=== PATIENT | female | born 1955 | race Caucasian/White ===

== ENCOUNTER 2025-03-01 10:15 | Inpatient (IN) | payer MEDICARE, SELFPAY ==
[2025-03-01] VITALS (18 sets, daily range): BP systolic 71–138; BP diastolic 37–86; PULSE 68–97; RESP 12–18; TEMP 35.8–37; O2SAT 87–100; BMI 29.0
--- NOTE | 2025-03-01 10:30 | DI.RAD_ITS ---
Exam(s) XR PELVIS AP EXAM: XR PELVIS AP CLINICAL HISTORY: pain s/p fall. TECHNIQUE: 2D digital imaging was performed. COMPARISON: No exams were available for comparison FINDINGS: Single AP view of the pelvis-hips There is a comminuted intertrochanteric fracture of the right hip. The lesser trochanter is avulsed. There are only minimal degenerative changes in the hip joint. Remainder of the pelvis appears unremarkable IMPRESSION: Intertrochanteric fracture of the right hip with additional avulsion of the lesser trochanter. DATA REPOSITORY: RADIATION DOSE DELIVERED:
--- NOTE | 2025-03-01 10:30 | DI.RAD_ITS ---
Exam(s) XR KNEE RT 3V AP,LAT,FAB EXAM: XR KNEE RT 3V AP,LAT,FAB CLINICAL HISTORY: pain s/p fall. TECHNIQUE: 2D digital imaging was performed. COMPARISON: No exams were available for comparison FINDINGS: Five views of the right knee No evidence of acute fracture. Possible small amount of increased joint fluid. There are significant osteoarthritic degenerative changes in all 3 compartments, most prominent in the medial compartment. IMPRESSION: Degenerative changes in the knee but no fractures. DATA REPOSITORY: RADIATION DOSE DELIVERED:
--- NOTE | 2025-03-01 10:30 | DI.RAD_ITS ---
Exam(s) XR FEMUR RT EXAM: XR FEMUR RT CLINICAL HISTORY: pain s/p fall. TECHNIQUE: 2D digital imaging was performed. COMPARISON: No exams were available for comparison FINDINGS: Four views There is a comminuted intertrochanteric fracture of the right hip. There is avulsion of the lesser trochanter. No osseous lesions at the fracture level in the hip nor elsewhere in the femur. There are significant degenerative changes in the ipsilateral knee joint. No osseous lesions. IMPRESSION: Comminuted intertrochanteric fracture of the right hip. Degenerative changes in the knee. DATA REPOSITORY: RADIATION DOSE DELIVERED:
--- NOTE | 2025-03-01 10:36 | W.ED.GENAD ---
Discharge Plan Disposition Patient Disposition: Admit to [facility] Condition: Stable Discharge Details Clinical Impression: Closed fracture of right hip Primary Care Provider: Gerson Proctor ED Provider: Adam Fay Home Meds and New Rx's Prescriptions: No Action bupropion HCl 100 mg tablet 100 mg PO BID losartan [Cozaar] 100 mg tablet 100 mg PO DAILY amlodipine 5 mg tablet 5 mg PO DAILY celecoxib [Celebrex] 100 mg capsule 100 mg PO BID hydrochlorothiazide 25 mg tablet 25 mg PO DAILY atorvastatin [Lipitor] 10 mg tablet 10 mg PO QHS HPI General Mode of arrival: EMS. Date/Time Provider Initiated Documentation: 03/01/25 10:15. Limitations to Documentation: no limitations. Information obtained by: patient. History of Present Illness 69 year old F presents to the emergency department with the chief complaint of right hip pain s/p fall, described as severe, Quality is described as sharp, Patient started experiencing this hour(s) (2) and it has been constant. Rest improves symptom(s), Movement worsens symptoms . Patient notes no other symptoms.. Related Data Home Medications ?Medication ?Instructions ?Recorded ?Confirmed amlodipine 5 mg tablet 5 mg PO DAILY 03/01/25 03/01/25 atorvastatin 10 mg tablet (Lipitor) 10 mg PO QHS 03/01/25 03/01/25 bupropion HCl 100 mg tablet 100 mg PO BID 03/01/25 03/01/25 celecoxib 100 mg capsule (Celebrex) 100 mg PO BID 03/01/25 03/01/25 hydrochlorothiazide 25 mg tablet 25 mg PO DAILY 03/01/25 03/01/25 losartan 100 mg tablet (Cozaar) 100 mg PO DAILY 03/01/25 03/01/25 Allergies Allergy/AdvReac Type Severity Reaction Status Date / Time No Known Allergies Allergy Unverified 03/01/25 10:23 General Stated Complaint: Orthopedic ARYA: 3 Review of Systems All systems reviewed & are unremarkable except as noted in HPI and below Constitutional Constitutional: Denies chills, Denies fever(s) and Denies weakness ENT Ears, Nose, Mouth, and Throat: Denies neck pain Cardiovascular Cardiovascular: Denies chest pain and Denies dyspnea Respiratory Respiratory: Denies cough and Denies dyspnea Gastrointestinal Gastrointestinal: Denies abdominal pain, Denies nausea and Denies vomiting Musculoskeletal Musculoskeletal: Reports deformity and Denies neck pain Neurologic Neurologic: Denies weakness Exam Const General: no acute distress Orientation: alert [facility] Head: normal to inspection Ears: external ears normal General nose exam: external nose normal Mouth: moist mucous membranes Eyes General: appearance normal, both eyes and all related structures Neck Neck: normal visual inspection and nontender Resp Effort & Inspection: normal respiratory effort and able to speak in complete sentences Cardio Rate: regular rate GI Palpation: soft and nontender Skin General skin exam: no rashes or lesions noted Neuro General: patient alert and patient oriented x3 Extrem General: capillary refill normal Psych Mental Status: mental status grossly normal Course Vital Signs Vital signs: Vital Signs Temperature 36.5 C 03/01/25 10:15 Pulse 81 03/01/25 10:15 Respiratory Rate 18 03/01/25 10:15 Pulse Oximetry 98 03/01/25 10:15 Temperature 36.5 C 03/01/25 10:15 Temperature Source Oral 03/01/25 10:15 Pulse 81 03/01/25 10:15 Respiratory Rate 18 03/01/25 10:15 Pulse Oximetry 98 03/01/25 10:15 Oxygen Delivery Method Room Air 03/01/25 10:15 Oxygen Flow Rate 0 03/01/25 10:15 Pain Level 5 03/01/25 10:15 Medical Decision Making 69-year-old female with a history of hypertension hyperlipidemia comes in with EMS after she had her dog on the leash and then the dog started to run after another dog causing the patient to be pulled over and landing on her right hip. She did not hit her head or lose consciousness. She had severe right hip pain and EMS had to be called because she was unable to get up due to the pain. She denies any headache, neck pain, back pain, chest or abdomen pain. Denies any preceding symptoms to the fall. She is unable to move her right hip due to pain. She also has tenderness in the right anterior knee without visible or palpable deformity of the knee. She has no tenderness in the tib-fib, ankle or foot with intact sensation and pulses. I suspect hip fracture, will check basic labs and obtain x-rays. Labs unremarkable, x-ray confirms right hip fracture. I discussed the case with Dr. Ortega who is planning on bringing in her to the OR later today. Spoke with hospitalist WILBER Chung who will plan to admit the patient. Differential Diagnosis Differential Diagnosis: Fracture, contusion Lab Data Lab results reviewed: Yes I reviewed the patient's lab results. ECG Data Attestation: I personally reviewed and interpreted this ECG (s) as follows: Prior ECG tracings: not available for review Interpretation: Sinus rhythm, rate of 72, no STEMI PFSH All Active Problems (Updated 03/01/25 @ 11:56 by Adam Fay MD) Closed fracture of right hip (Acute) Dyslipidemia (Acute) Hypertension (Chronic) Closed intertrochanteric fracture of right hip (Acute 03/01/25) Social History Smoking/Tobacco Use Status: Former Tobacco Use Smoking risk assessment performed?: Yes Alcohol Intake: current Alcohol Intake frequency: 0-2 drinks per day Substance use type: marijuana Housing: house Do you feel safe at home: Yes Do you feel safe in your relationship?: Yes
[2025-03-01] MEDS: Ketorolac 15 MG/ML VIAL IVP (10:53)
[2025-03-01 10:57] LABS: Abs Immature Grans 0.04 10^3/uL (0.0-0.06); HCT 37.9 % (36.0-46.0); HGB 13.4 g/dL (11.2-15.7); Immature Grans % 0.5 %; MCH 30.5 pg (27.0-33.0); MCHC 35.4 % (32.0-36.0); MCV 86 fL (80-95); MPV 9.0 fL (8.0-11.0); Platelet Count 310 10^3/uL (130-400); RBC 4.39 10^6/uL (3.93-5.22); RDW 12.3 % (11.7-14.6); RDW-SD 39.1 fL; WBC 8.17 10^3/uL (4.4-10.8)
[2025-03-01 11:13] LABS: ALT 45 U/L (14-59); AST 27 U/L (15-37); Albumin 4.2 g/dL (3.4-5.0); Alkaline Phosphatase 47 U/L (46-116); Anion Gap 10.2 mmol/L (3-11); BUN 14 mg/dL (7-18); Bilirubin, Total 0.4 mg/dL (0.2-1.0); CO2 27.8 mmol/L (21.0-32.0); Calcium 9.1 mg/dL (8.5-10.1); Chloride 98 mmol/L (98-107); Estimated GFR 93.56 (mL/min/1.73m2); Glucose 114 mg/dL (74-106); INR 1.0 (0.9-1.1); Magnesium 2.1 mg/dL (1.8-2.4); PTT Activated 25.4 sec (20.6-30.2); Potassium 3.5 mmol/L (3.5-5.1); Prothrombin Time 10.1 sec (9.1-11.1); Sodium 136 mmol/L (136-145); Total Protein 7.6 g/dL (6.4-8.2)
--- NOTE | 2025-03-01 11:42 | OCONE_ITS ---
Assessment and Plan Assessment and plan (1) Closed intertrochanteric fracture of right hip: Status: Acute Assessment and plan: 69 year old female with displaced Right hip intertrochanteric fracture Medical admission, [employer] evalution, and optimization for surgery potentially this afternoon given overall good health for Right hip intramedullary nailing Patient greeted in the OR holding area. Community ambulator without any assist device. No notable pre-existing hip problems. Significant right knee arthritis problems having been told not to have surgery at [facility] until it was her redness and also was described a challenging recovery so has been holding off. Was visiting camp and mechanical fall due to dogs earlier today with isolated right hip problem. Denies any other injuries or issues. Hypertension and hyperlipidemia. Lives alone in [place] but has family and friends in that area. Comfortable in hospital bed. Moving bilateral upper extremities and left lower extremity without issue sensory intact. Sensory intact right lower extremity. Right hip tenderness not vigorously tested. Right knee without signs of injury. Pelvis hip femur x-rays reviewed showing displaced multipart intertrochanteric hip fracture. Significant knee arthritis, difficult to visualize due to poor positioning due to hip fracture. Decision to proceed with surgery today: Right hip intramedullary nailing The risks, benefits, and alternatives were thoroughly discussed. Patient was counseled regarding pain management, expected postoperative course, and recovery timeline. All questions were answered. Informed consent was obtained. Agree and understand treatment plan. Follow up 10-14 days after surgery. Will call if any changes or concerns. Breathing comfortably on room air. No coughs or wheezes. 2+ right radial pulse. Regular rate and rhythm. Consider referral Dr. Griffin evaluate right knee for total knee arthroplasty. Short narrow preferred for this fracture and to avoid any future issue above knee replacement. [facility] All Active Problems (Updated 03/01/25 @ 11:56 by Adam Fay MD) Closed fracture of right hip (Acute) Dyslipidemia (Acute) Hypertension (Chronic) Closed intertrochanteric fracture of right hip (Acute 03/01/25) Social History Smoking/Tobacco Use Status: Former Tobacco Use Smoking risk assessment performed?: Yes Alcohol Intake: current Alcohol Intake frequency: 0-2 drinks per day Substance use type: marijuana Housing: house Do you feel safe at home: Yes Do you feel safe in your relationship?: Yes Results Last Vital Signs Temp 97.7 F 03/01/25 10:15 Pulse 81 03/01/25 10:15 Resp 18 03/01/25 10:15 Pulse Ox 98 03/01/25 10:15 Labs 03/01/25 10:15 03/01/25 10:15 Labs: Laboratory Results - last 24 hr 03/01/25 10:15 WBC 8.17 RBC 4.39 Hgb 13.4 Hct 37.9 MCV 86 MCH 30.5 MCHC 35.4 RDW 12.3 Plt Count 310 MPV 9.0 Immature Gran % 0.5 Neutrophils % 73.3 Lymphocytes % 14.4 Monocytes % 7.2 Eosinophils % 4.0 Basophils % 0.6 Nucleated RBC % 0.0 Absolute Neutrophils 5.98 Absolute Lymphocytes 1.18 L Absolute Monocytes 0.59 Absolute Eosinophils 0.33 Absolute Basophils 0.05 PT 10.1 INR 1.0 APTT 25.4 Sodium 136 Potassium 3.5 Chloride 98 Carbon Dioxide 27.8 Anion Gap 10.2 BUN 14 Creatinine 0.7 Est GFR (CKD-EPI 2020) 93.56 Glucose 114 H Calcium 9.1 Magnesium 2.1 Total Bilirubin 0.4 AST 27 ALT 45 Alkaline Phosphatase 47 Total Protein 7.6 Albumin 4.2
--- NOTE | 2025-03-01 11:45 | RT.EKG_ITS ---
APPROVED REPORT Exam: Resting ECG Reason for Exam: preop Patient Location: E HR:72 bpm ECG Measurements Heart Rate 72 AXIS FL 202 P 54 QRSd 96 QRS 25 QT 403 T 32 QTc 441 Conclusion Sinus rhythm...normal P axis, V-rate 60- 99
--- NOTE | 2025-03-01 11:49 | DI.VRAD_ITS ---
PROCEDURE INFORMATION: Exam: XR Pelvis Exam date and time: 03/01/2025 11:01 AM Age: 69 years old Clinical indication: Other: Fall TECHNIQUE: Imaging protocol: Radiologic exam of the pelvis. Views: 1 or 2 view. COMPARISON: No relevant prior studies available. FINDINGS: Bones/joints: Bony mineralization appears within normal limits. There is a comminuted intertrochanteric fracture of the right hip with foreshortening and valgus deformity. Degenerative changes are seen in both hips. Degenerative changes are seen in the lumbar spine. SI joints are symmetric. There is no other acute fracture on AP view of the pelvis Soft tissues: Soft tissue calcification/phleboliths are noted. Gastrointestinal tract: Prominent stool in the rectum. Bowel gas pattern is unremarkable IMPRESSION: Comminuted intertrochanteric fracture of the right hip. Dictated and Authenticated by: Brigitte Smith MD. Orderin Nya Medina MD
--- NOTE | 2025-03-01 11:50 | W.PM.HP.N ---
Date of service: 03/01/25 Time of Service: 11:50 Assessment and Plan Assessment and plan (1) Closed intertrochanteric fracture of right hip: Status: Acute Assessment and plan: Admit to the medical surgical unit for a right hip fracture, sustained during mechanical fall. No other injuries. Surgical consultation Plan for or repair today at 3 PM N.p.o. Pain management Patient is optimized for surgery (2) Hypertension: Status: Chronic Assessment and plan: Blood pressures are controlled and will be monitored Will continue home medications (3) Dyslipidemia: Status: Acute Assessment and plan: Continue statin discussed with DR Gilbert History of Present Illness Narrative: This is a 69-year-old female patient past medical history significant for hypertension, dyslipidemia who presented to the emergency department today after sustaining a mechanical fall with injury to her right hip and lower extremity. Her workup in the emergency department did show a closed intertrochanteric fracture of the right hip. Orthopedics was consulted and plan is for surgical repair here at an [facility]. She sustained no other injury from the fall. She denies any recent illness. Labs unremarkable. X-ray of the right knee shows no dislocation or bony abnormality. She is being admitted to the hospitalist services with orthopedic consult for repair Review of Systems All systems reviewed & are unremarkable except as noted in HPI and below PFSH All Active Problems (Updated 03/01/25 @ 11:56 by Adam Fay MD) Closed fracture of right hip (Acute) Dyslipidemia (Acute) Hypertension (Chronic) Closed intertrochanteric fracture of right hip (Acute 03/01/25) Social History Smoking/Tobacco Use Status: Former Tobacco Use Smoking risk assessment performed?: Yes Alcohol Intake: current Alcohol Intake frequency: 0-2 drinks per day Substance use type: marijuana Housing: house Do you feel safe at home: Yes Do you feel safe in your relationship?: Yes Meds Allergies and Home Medications Allergies Allergy/AdvReac Type Severity Reaction Status Date / Time No Known Allergies Allergy Unverified 03/01/25 10:23 Home Medications ?Medication ?Instructions ?Recorded ?Confirmed ?Type amlodipine 5 mg tablet 5 mg PO DAILY 03/01/25 03/01/25 History atorvastatin 10 mg tablet (Lipitor) 10 mg PO QHS 03/01/25 03/01/25 History bupropion HCl 100 mg tablet 100 mg PO BID 03/01/25 03/01/25 History celecoxib 100 mg capsule (Celebrex) 100 mg PO BID 03/01/25 03/01/25 History hydrochlorothiazide 25 mg tablet 25 mg PO DAILY 03/01/25 03/01/25 History losartan 100 mg tablet (Cozaar) 100 mg PO DAILY 03/01/25 03/01/25 History Results Labs 03/01/25 10:15 03/01/25 10:15 Labs: Laboratory Results - last 24 hr 03/01/25 10:15 WBC 8.17 RBC 4.39 Hgb 13.4 Hct 37.9 MCV 86 MCH 30.5 MCHC 35.4 RDW 12.3 Plt Count 310 MPV 9.0 Immature Gran % 0.5 Neutrophils % 73.3 Lymphocytes % 14.4 Monocytes % 7.2 Eosinophils % 4.0 Basophils % 0.6 Nucleated RBC % 0.0 Absolute Neutrophils 5.98 Absolute Lymphocytes 1.18 L Absolute Monocytes 0.59 Absolute Eosinophils 0.33 Absolute Basophils 0.05 PT 10.1 INR 1.0 APTT 25.4 Sodium 136 Potassium 3.5 Chloride 98 Carbon Dioxide 27.8 Anion Gap 10.2 BUN 14 Creatinine 0.7 Est GFR (CKD-EPI 2020) 93.56 Glucose 114 H Calcium 9.1 Magnesium 2.1 Total Bilirubin 0.4 AST 27 ALT 45 Alkaline Phosphatase 47 Total Protein 7.6 Albumin 4.2 Last Vital Signs Temp 36.5 C 03/01/25 10:15 Pulse 81 03/01/25 10:15 Resp 18 03/01/25 10:15 Pulse Ox 98 03/01/25 10:15 Time Spent Time spent with Patient: 40-54 minutes Time was spent: preparing to see the patient(eg.review tests), obtaining and/or reviewing separately otained hiistory, ordering medications,tests, procedures and indepentently interpreting results
--- NOTE | 2025-03-01 11:51 | DI.VRAD_ITS ---
PROCEDURE INFORMATION: Exam: XR Right Knee Exam date and time: 03/01/2025 11:05 AM Age: 69 years old Clinical indication: Other: Fall TECHNIQUE: Imaging protocol: Radiologic exam of the right knee. Views: 3 views. COMPARISON: CR XR FEMUR RT 03/01/2025 11:02 AM FINDINGS: Bones/joints: Bony mineralization is within normal limits. There are 3 compartment degenerative changes in the right knee most prominent the medial compartment. No acute fracture is identified at this [id number]. Possible joint effusion/popliteal cyst. Soft tissues: There is mild prepatellar soft tissue edema IMPRESSION: DJD right knee. No acute fracture visualized. Dictated and Authenticated by: Brigitte Smith MD. Orderin Nya Medina MD
--- NOTE | 2025-03-01 11:56 | DI.VRAD_ITS ---
PROCEDURE INFORMATION: Exam: XR Right Femur Exam date and time: 03/01/2025 11:02 AM Age: 69 years old Clinical indication: Other: Fall TECHNIQUE: Imaging protocol: Radiologic exam of the right femur. Views: 2 views. COMPARISON: CR XR PELVIS AP 03/01/2025 11:01 AM FINDINGS: Bones/joints: Bony mineralization is within normal limits. There is a comminuted intertrochanteric fracture of the right hip with foreshortening, valgus deformity. Lesser trochanter is a separate fracture fragment. Degenerative changes are seen in the right knee. No other acute fracture is identified. Soft tissues: No significant abnormality identified by plain film exam. IMPRESSION: Comminuted intratrochanteric fracture right hip. Dictated and Authenticated by: Brigitte Smith MD. Orderin Nya Medina MD
--- NOTE | 2025-03-01 12:29 | W.ANESPRE ---
General Info Date of Service Date Performed: 03/01/25 Height: 5 ft 1 in Weight: 69.853 kg Body Mass Index (BMI): 29.0 Meds Allergies and Home Medications Allergies Allergy/AdvReac Type Severity Reaction Status Date / Time No Known Allergies Allergy Unverified 03/01/25 10:23 Home Medication ?Medication ?Instructions ?Recorded amlodipine 5 mg tablet 5 mg PO DAILY 03/01/25 atorvastatin 10 mg tablet (Lipitor) 10 mg PO QHS 03/01/25 bupropion HCl 100 mg tablet 100 mg PO BID 03/01/25 celecoxib 100 mg capsule (Celebrex) 100 mg PO BID 03/01/25 hydrochlorothiazide 25 mg tablet 25 mg PO DAILY 03/01/25 losartan 100 mg tablet (Cozaar) 100 mg PO DAILY 03/01/25 Current Visit Medications: Current Medications Generic Name Dose Route Start Last Admin Trade Name Freq PRN Reason Stop Dose Admin IV Miscellaneous Supplies 1 each 03/01/25 10:45 Iv Access IV DIRECTED YANNICK Sodium Chloride 0 ml 03/01/25 10:31 Normal Saline Flush 10 Ml Syr IVP PRN PRN Sodium Chloride 0 ml 03/01/25 20:00 Normal Saline Flush 10 Ml Syr IVP BID YANNICK Sodium Chloride 0 ml 03/01/25 10:31 Normal Saline 10 Ml Vial IJ DIRECTED PRN PFSH Active Problems Active Problems: Problem Status Onset Code Closed fracture of right hip Acute S72.001A Dyslipidemia Acute E78.5 Hypertension Chronic I10 Closed intertrochanteric fracture of right hip Acute 03/01/25 S72.141A Tobacco Smoking/Tobacco Use Status: Former Tobacco Use Alcohol Alcohol Intake: current Alcohol intake frequency: 0-2 drinks per day Substance Use Substance use type: marijuana Vital Signs and Lab Results Vital Signs Most Recent Vital Signs in EMR: Most Recent Vital Signs Temp Pulse Resp Pulse Ox 36.5 C 81 18 98 03/01/25 10:15 03/01/25 10:15 03/01/25 10:15 03/01/25 10:15 Lab Results 03/01/25 10:15 03/01/25 10:15 Blood Type / Crossmatch: Antibody Screen NEGATIVE Today Complete Blood Count: WBC, (4.4-10.8) 8.17 10^3/uL Today, 10:15 RBC, (3.93-5.22) 4.39 10^6/uL Today, 10:15 Hgb, (11.2-15.7) 13.4 g/dL Today, 10:15 Hct, (36.0-46.0) 37.9 % Today, 10:15 Plt Count, (130-400) 310 10^3/uL Today, 10:15 Complete Metabolic Panel: Sodium, (136-145) 136 mmol/L Today, 10:15 Potassium, (3.5-5.1) 3.5 mmol/L Today, 10:15 Chloride, (98-107) 98 mmol/L Today, 10:15 Carbon Dioxide, (21.0-32.0) 27.8 mmol/L Today, 10:15 BUN, (7-18) 14 mg/dL Today, 10:15 Creatinine, (0.55-1.02) 0.7 mg/dL Today, 10:15 Est GFR (CKD-EPI 2020), (mL/min/1.73m2) 93.56 Today, 10:15 Magnesium, (1.8-2.4) 2.1 mg/dL Today, 10:15 Calcium, (8.5-10.1) 9.1 mg/dL Today, 10:15 Albumin, (3.4-5.0) 4.2 g/dL Today, 10:15 Glucose, (74-106) 114 mg/dL H Today, 10:15 Liver Function Panel: ALT, (14-59) 45 U/L Today, 10:15 AST, (15-37) 27 U/L Today, 10:15 Coagulation Panel: INR, (0.9-1.1) 1.0 Today, 10:15 PT, (9.1-11.1) 10.1 sec Today, 10:15 APTT, (20.6-30.2) 25.4 sec Today, 10:15 Anesthesia Assessment and Plan Anesthesia History Personal History: No History of Anesthesia Complications Family History: No Family History of Anesthesia Complications Exercise Tolerance Exercise Tolerance: Metabolic Equivalents>4 Pertinent Negatives Pertinent Negatives: No Symptoms of GERD Cardiac & Pulmonary Exam Cardiac Exam: Normal S1/S2 Heart Sounds Pulmonary Exam: Clear Bilateral Breath Sounds Implantable Cardiac Device Does patient have a Pacemaker or an ICD?: No Airway Exam Known Difficult Airway: No Mallampati Class: 2 Mouth Opening: Normal (> 3cm) Thyromental Distance: Greater than 3 cm Neck Range of Motion: Full ROM Neck Circumference: Normal Teeth Condition: Normal Dentition ASA Classification ASA Score: ASA 2 Emergency Case?: Yes NPO Status NPO Status: NPO Clears >2 hours, Solids >8 hours Anesthesia Plan Resuscitation Status: Full Code Anesthesia Technique: General Anesthesia Airway Planned: Endotracheal Tube Monitors Used: Standard Monitors
--- NOTE | 2025-03-01 12:40 | W.PC.ACHO ---
Registration Status: REG ER Primary Language: Preferred Language: ED Information & Data Chief Complaint Orthopedic 03/01/25 10:39 Triage Note pt was walking dog and the 03/01/25 10:15 dog ran and pulled her to ground and now has pain right hip Most Recent Vital Signs Temperature 36.5 C 03/01/25 10:15 Temperature Source Oral 03/01/25 10:15 Pulse 81 03/01/25 10:15 Respiratory Rate 18 03/01/25 10:15 Pulse Oximetry 98 03/01/25 10:15 Oxygen Delivery Method Room Air 03/01/25 10:15 Oxygen Flow Rate 0 03/01/25 10:15 Pain Level 5 03/01/25 10:15 Allergies No Known Allergies Allergy (Unverified 03/01/25 10:23) Diagnostics 03/01/25 Range/Units 10:15 WBC 8.17 (4.4-10.8) 10^3/uL RBC 4.39 (3.93-5.22) 10^6/uL Hgb 13.4 (11.2-15.7) g/dL Hct 37.9 (36.0-46.0) % MCV 86 (80-95) fL MCH 30.5 (27.0-33.0) pg MCHC 35.4 (32.0-36.0) % RDW 12.3 (11.7-14.6) % Plt Count 310 (130-400) 10^3/uL MPV 9.0 (8.0-11.0) fL Immature Gran % 0.5 % Neutrophils % 73.3 % Lymphocytes % 14.4 % Monocytes % 7.2 % Eosinophils % 4.0 % Basophils % 0.6 % Nucleated RBC % 0.0 (0.0-0.3) % Absolute Neutrophils 5.98 (1.2-6.7) 10^3/uL Absolute Lymphocytes 1.18 L (1.2-3.4) 10^3/uL Absolute Monocytes 0.59 (0.1-0.8) 10^3/uL Absolute Eosinophils 0.33 (0.0-0.7) 10^3/uL Absolute Basophils 0.05 (0.0-0.2) 10^3/uL PT 10.1 (9.1-11.1) sec INR 1.0 (0.9-1.1) APTT 25.4 (20.6-30.2) sec Sodium 136 (136-145) mmol/L Potassium 3.5 (3.5-5.1) mmol/L Chloride 98 (98-107) mmol/L Carbon Dioxide 27.8 (21.0-32.0) mmol/L Anion Gap 10.2 (3-11) mmol/L BUN 14 (7-18) mg/dL Creatinine 0.7 (0.55-1.02) mg/dL Est GFR (CKD-EPI 2020) 93.56 (mL/min/1.73m2) Glucose 114 H (74-106) mg/dL Calcium 9.1 (8.5-10.1) mg/dL Magnesium 2.1 (1.8-2.4) mg/dL Total Bilirubin 0.4 (0.2-1.0) mg/dL AST 27 (15-37) U/L ALT 45 (14-59) U/L Alkaline Phosphatase 47 (46-116) U/L Total Protein 7.6 (6.4-8.2) g/dL Albumin 4.2 (3.4-5.0) g/dL ABO/Rh O Positive Antibody Screen NEGATIVE Intake and Output - 24 Hour Total 03/01/25 10:13 thru 03/01/25 12:30 Weight 69.853 kg Falls Risk Assessment History of Falls No History 03/01/25 10:29 Contributing Factors No Factors 03/01/25 10:29 Ambulatory Aids Independent 03/01/25 10:29 Tubes/Lines None 03/01/25 10:29 Gait Evaluation No gait disturbance 03/01/25 10:29 Cognition No cognitive impairment 03/01/25 10:29 Fall Total Score 0 03/01/25 10:29 Level of Risk Standard/Low Risk 03/01/25 10:29 Problems Dyslipidemia (Acute) Hypertension (Chronic) Closed intertrochanteric fracture of right hip (Acute 03/01/25) v v v v v v v v v Sending and/or Receiving Nurses: Please use comment section below to note any information pertinent to the patient hand-off not included above. Information / Comments: report recieved all questions answered. Report received from: Report receieved from PERFECTO Fountain @ [id number]
[2025-03-01] MEDS: Normal Saline Flush 10 ML SYR IVP ×2 (13:03→19:47)
[2025-03-01] MEDS: ACETAMINOPHEN 1,000 MG/100 ML BAG 400 MG IVPB ×2 (13:03→20:44)
--- NOTE | 2025-03-01 13:45 | DI.RAD_ITS ---
Exam(s) XR HIP RT IN OR EXAM: XR HIP RT IN OR CLINICAL HISTORY: Closed intertrochanteric fracture of right hip. TECHNIQUE: 2D digital imaging was performed. COMPARISON: No exams were available for comparison FINDINGS: Fluoroscopy was provided intraoperatively during ORIF of right hip intertrochanteric fracture. See procedure report for details. IMPRESSION: Radiation exposure index/cumulative dose:Aquilinor= 13.375mGy DATA REPOSITORY: RADIATION DOSE DELIVERED:
[2025-03-01] MEDS: Lactated Ringers 1,000 ML 75 ML IV ×2 (14:59→18:15)
[2025-03-01] MEDS: ceFAZolin 2 GM/50 ML BAG 100 GM (15:08)
[2025-03-01] MEDS: TRANEXAMIC ACID/SOD. CHL. 1,000 MG/100 ML BAG 600 MG (15:30)
[2025-03-01] MEDS: Bupivacaine 0.25% Pres-Free W/EPI 30 ML VIAL ×2 (15:50→16:00)
--- NOTE | 2025-03-01 17:08 | ROE_ITS ---
Operative Note Operative Note PRE-OP DIAGNOSIS: Right hip intertrochanteric fracture POST-OP DIAGNOSIS: same PROCEDURE: Right hip intramedullary nail, CPT #35289 SURGEON: Armen Ortega ACID WASH OPERATOR: None None ANESTHESIA TYPE: Local By Surgeon and General LMA/ETT Refer to Anesthesia Record ESTIMATED BLOOD LOSS: 30 COMPLICATIONS: None Patient was transported to: PACU Patient's condition: stable Implants: Synthes TFNA [id number] 130 deg, 95 mm TFNA helical blade, 34 mm 5.0mm distal locking screw Indications: Please see medical record for details Procedure Description: In the operating room, general anesthesia was induced. The patient was transferred and positioned supine on the fracture table. All bony prominences were well padded. Pre-operative antibiotics were administered. C-arm fluoroscopy was used to confirm appropriate provisional fracture reduction with traction and internal rotation. Additional AP knee x-ray was obtained as none were able to be done due to positioning challenges in radiology from this injury to confirm no acute knee injury in the presence of significant medial arthritis. The correct patient, procedure, and side of the procedure were all verified prior to incision. The hip was prepped and draped in the usual sterile fashion. Local anesthetic with epinephrine was infiltrated about the planned start point as well as later about the lateral entry site for cephalomedullary and distal locking screws. C- arm fluoroscopy was used to locate the appropriate start point for the guide wire on the tip of the greater trochanter. This guide wire was advanced centrally down the proximal femur to the level of the lessor trochanter. Lateral images confirmed appropriate start point on the trochanter. Next the incision was extended about the guide wire to accommodate the nailing jig and this incision was carried down through the fascia and spread apart for ease of future instrument passage. The entry reamer was inserted along with the soft tissue protection tube and this reamer was used to open the proximal femur. The entry reamer, soft tissue protector, and guidewire were removed from the proximal femur. The appropriately selected nail was assembled on the back table to the jig and tested to ensure proper passage of the cephalomedullary drill. This implant was manually inserted into the proximal femur, but could not advance into the proximal femur due to narrow canal and thick strong cortices. The nail was removed. A ball-tipped guidewire was passed into the proximal femur and all the way down in the canal to the knee. Over this guidewire sequential reaming was done up to 13 mm to accommodate nail placement. The nail was then replaced and advanced to the appropriate level for cephalomedullary fixation without difficulty. Another incision was made laterally to accommodate the cephalomedullary aiming tube and trochar, which were advanced down to bone. The guide wire was then advanced into the femoral neck and adjusted on AP and lateral fluoroscopy until it was placed near subchondral bone in the center- center position in the femoral head. The depth gauge was used to measure the helical blade length accommodating for depth of guidewire insertion. Next, the drills were used to open the lateral cortex, drill over the wire, and the helical blade was advanced to the appropriate depth by gentle mallet blows. The set screw was engaged and backed off 180 degrees to allow for rotationally- controlled sliding and compression. Traction was released, and the fracture was compressed appropriately via the buttress and compression nut on the jig. The cephalomedullary aiming guide was removed. The distal locking screw guide was inserted through another small incision down the bone. The drill was used to drill for this static locking screw and measure the length. The appropriate length screw was then inserted bicortically. The jig was removed from the nail. Final AP and lateral fluoroscopic images were taken and confirmed appropriate fracture reduction and implant placement. All wounds were copiously irrigated. Deep layers were closed using 0 vicryl in an interrupted fashion. Subcutaneous tissue was closed using 2-0 monocryl in a buried interrupted fashion. 3-0 Monocryl running subcuticular used to close the skin in the proximal and middle incisions. Skin glue was applied to all incisions. Incisions were covered with Mepilex Band-Aids. The patient awoke from anesthesia without complication and was transferred to the recovery room in stable condition. Date of Procedure: 03/01/25
--- NOTE | 2025-03-01 17:11 | PGE_ITS ---
Date of Service Date of service: 03/01/25 Time of Service: 17:11 Assessment and Plan Assessment and plan (1) Closed intertrochanteric fracture of right hip: Status: Acute Assessment and plan: 69-year-old female postop day #0 status post right Hip IMN Waking up reasonably comfortably in PACU. Tolerates exam of right lower extremity, which has more regular alignment and symmetrical gently tested rotation and length to the other side. Intact sensation throughout and distally intact motor. Ordered placed- Complete 24 hours postoperative antibiotics Physical therapy: Weightbearing as tolerated with assist device Per hospitalist- Pain control-Multimodal May start chemical DVT prophylaxis tomorrow morning assuming hemodynamically stable: Lovenox as inpatient, ASA 81mg BID as outpatient x30 days Continue mechanical DVT prophylaxis with SCDs and/or LEONARDA hose Discharge when medically appropriate My office messaged- Follow-up with Dr. Ortega outpatient [facility] orthopedics in about 2-3 weeks (or locally at [facility] per patient preference, we could send referral) Discharge instructions (please update & copy into discharge document) Surgery: Right hip IMN 03/01/25 Activity: Weightbearing as tolerated with walker Home health versus outpatient physical therapy will be arranged as needed Prescriptions: Aspirin 81 mg take 1 twice daily to prevent a blood clot for 30 days Celecoxib 100 mg take 1 every 12 hours with a meal as needed for moderate pain Tramadol 50 mg take 1 every 6 hours as needed for severe pain You may use [id number] Tylenol (acetaminophen) as needed for mild pain. These pain medications may be taken all at once or in different combinations as needed. Also, recommend Colace (docusate) as a stool softener as surgery and pain medicine cause constipation. Dressings: Leave dressing in place until follow-up. Keep clean and dry at all times. Follow-up: About [address] Ortega (or locally at [facility] in about 2-3 weeks?we can help make these arrangements/referral) Please call [facility] during business hours with any questions or concerns. Objective Last Vital Signs Temp 98.6 F 03/01/25 14:26 Pulse 89 03/01/25 14:26 Resp 18 03/01/25 14:26 BP 116/86 03/01/25 14:26 Pulse Ox 97 03/01/25 14:26 Laboratory Results - last 24 hr 03/01/25 10:15 WBC 8.17 RBC 4.39 Hgb 13.4 Hct 37.9 MCV 86 MCH 30.5 MCHC 35.4 RDW 12.3 Plt Count 310 MPV 9.0 Immature Gran % 0.5 Neutrophils % 73.3 Lymphocytes % 14.4 Monocytes % 7.2 Eosinophils % 4.0 Basophils % 0.6 Nucleated RBC % 0.0 Absolute Neutrophils 5.98 Absolute Lymphocytes 1.18 L Absolute Monocytes 0.59 Absolute Eosinophils 0.33 Absolute Basophils 0.05 PT 10.1 INR 1.0 APTT 25.4 Sodium 136 Potassium 3.5 Chloride 98 Carbon Dioxide 27.8 Anion Gap 10.2 BUN 14 Creatinine 0.7 Est GFR (CKD-EPI 2020) 93.56 Glucose 114 H Calcium 9.1 Magnesium 2.1 Total Bilirubin 0.4 AST 27 ALT 45 Alkaline Phosphatase 47 Total Protein 7.6 Albumin 4.2 ABO/Rh O Positive Antibody Screen NEGATIVE PAWSS Have you Been Recently Intoxicated or Drunk Within the Last 30 days?: No Have you Ever Experienced Previous Episodes of Alcohol Withdrawal?: No Have you ever Experienced Withdrawal Seizures?: No Have you ever Experienced Delirium Tremens(DT)s?: No Have you ever undergone Alcohol Rehabilitation Treatment (i.e, inpt ot outpatient treatment programs)?: No Have you ever Experienced Blackouts?: No Have you ever Combined Alcohol with other Downers within the last 90 days?: No Have you ever Combined Alcohol with any other Substance of Abuse during the last 90 days?: No Positive Blood Alcohol level on Presentation? [PCS.BAL]: No Evidence of Increased Autonomic Activity (i.e. HR>120, tremor, sweating, agitation, nausea)?: No Result: 0 Time Spent with Patient Time Spent with Patient: <25 minutes Time was spent: obtaining and/or reviewing separately otained hiistory, referring, communicating with other health dog day care attendant, counseling the patient and care coordination
[2025-03-01] MEDS: ePHEDrine 25 MG/5 ML Syringe IVP (17:16)
--- NOTE | 2025-03-01 18:52 | ANES.POST_ITS ---
Postoperative Evaluation Date, Time and Location Date Performed: 03/01/25 Time Performed: 18:52 Patient Location: Med/Surg Vital Signs Most Recent Imported Vital Signs: Most Recent Vital Signs Temp Pulse Resp BP Pulse Ox 36.6 C 97 H 18 121/76 87 L 03/01/25 18:17 03/01/25 18:17 03/01/25 18:17 03/01/25 18:17 03/01/25 18:17 Pain Score Most Recent Pain Score: Most Recent Pain Score Pain Level 0 03/01/25 18:17 Assessment Mental Status: Awake (Alert & Oriented to Patient Baseline) Airway and Respiratory Function: Patent airway with normal (patient baseline) respiratory exam Cardiovascular Function: Hemodynamically Stable Hydration Status: Adequately Hydrated Nausea & Vomiting: No Nausea or Vomiting Pain: Pain is Moderate or Severe (MedSurg staff holding pain med d/t BP. Pt assessed and hotel staff member encouraged to medicate her. BP as noted above.) Postoperative Pain Management: Ongoing pain, patient will be managed as an inpatient Peripheral Nerve Block: Patient did not receive a nerve block
[2025-03-01] MEDS: Celecoxib 100 MG CAP PO (18:55)
[2025-03-01] MEDS: ceFAZolin 1 GM/50 ML BAG IVPB (19:46)
[2025-03-01] MEDS: Lactated Ringers 1,000 ML 1000 ML IV (23:33)
[2025-03-02 00:12] VITALS: BP 106/68; PULSE 89; RESP 18; TEMP 36.5; O2SAT 97
[2025-03-02 01:23] VITALS: BP 106/68; PULSE 89; RESP 18; O2SAT 97
[2025-03-02 03:38] VITALS: BP 109/61; PULSE 87; RESP 18; TEMP 36.9; O2SAT 98
[2025-03-02] MEDS: ceFAZolin 1 GM/50 ML BAG IVPB ×2 (04:04→11:44)
[2025-03-02] MEDS: ACETAMINOPHEN 1,000 MG/100 ML BAG 400 MG IVPB (04:45)
[2025-03-02 07:44] VITALS: BP 120/73; PULSE 90; RESP 18; TEMP 36.6; O2SAT 97
[2025-03-02] MEDS: Celecoxib 100 MG CAP PO (08:33)
[2025-03-02] MEDS: Lactobacillus Acidophilus CAP 1 CAP PO (08:33)
[2025-03-02] MEDS: Normal Saline Flush 10 ML SYR IVP (08:34)
--- NOTE | 2025-03-02 08:47 | IN_ITS ---
PT Notes Visit Reasons: Right Hip Fracture Physical Therapy Inpatient Initial Evaluation Date: 03/02/2025 Referring Doctor: Armen Ortega MD PT Orders: PT CONSULT: S/P Ortho Surgery. R LE WBAt walker Precautions: Fall. Standard. Activity as tolerated. Patient Profile/Admitting Diagnosis: José is a 69-year=old female who sustained a comminuted fracture of the R femur and is S/P R IMN on postoperative day 1. Patient was walking her 130-pound dog Meagan who accidentally ran around her and got her tied up with the lash which caused her fall yesterday. PMHX: All Active Problems (Updated 03/01/25 @ 11:56 by Adam Fay MD) Closed fracture of right hip (Acute) Dyslipidemia (Acute) Hypertension (Chronic) Closed intertrochanteric fracture of right hip (Acute 03/01/25) Social History/Home Situation: Independent with all aspects of ADLs prior to surgery. Sons have been good support. Oldest son taking time off to help take care of mom upon return home. Equipment Owned/DME: None Subjective: [place] good walking out of bed with walker. Denied headache, chest pain, and lightheadedness throughout session. Objective: General Observation: Post op surgical dressing to R hip. IV access through R UE. Mental Status: Alert and oriented as to person, place, time, and purpose. Able to pay attention, focus, and respond appropriately. Pain: 5/10 throughout session Vital Signs: BP 105/59 mmHg, 99% on RA, 113 bpm after walking 150 feet with FWW ROM: Right Lower Extremity: Hip flexion allowed up to 100 degrees. Hip abduction allowed up to 15 degrees. Knee flexion 10 degrees to 100 degrees. Knee extension -10 degrees. Ankle dorsiflexion WFL. Ankle plantarflexion WFL. Left Lower Extremity: Hip flexion WFL. Hip abduction WFL. Knee flexion WFL. Ankle dorsiflexion WFL. Ankle plantarflexion WFL. Strength: Right Lower Extremity: Hip flexors 3-/5. Hip abductors 3-/5. Knee flexors 3-/5. Knee extensors 3-/5. Ankle dorsiflexors 4-/5. Ankle plantarflexors 4-/5. Left Lower Extremity: Hip flexors 4/5. Hip abductors 4/5. Knee flexors 5/5. Knee extensors 4/5. Ankle dorsiflexors 4/5. Ankle plantarflexors 4/5. Bed Mobility/Transfers: Minimal cueing provided for use of B hands as needed for support, movement sequence, AD management, and posture to reduce fall risk and minimize pain report Rolling stand by assist Supine to sit stand by assist with HOB at 45 degrees Sit to supine contact guard assist to R LE after patient managed to almost bring R LE up using L foot hooked behind the R Sit to stand contact guard assist with FWW with definite use of hands for support Stand to sit contact guard assist with FWW with definite use of hands for support Bed to reclining chair contact guard assist with FWW with definite use of hands for support Reclining chair to bed contact guard assist with FWW with definite use of hands for support Gait: Facilitated safe and correct performance of level surface ambulation covering a disatnce of 150 feet and 150 feet using front-wheeled walker with mild antalgic gait observed but no LOB. Verbalized feeling mildly SOB but symptom subsided whne she went back to bed after session. Step height and length in R decreased. Minimal verbal cueing was given for to AD management, weight distribution through R LE (as recommended by orthopod), limb moveme Jeanne Graves MDnt sequence and for posture to minimize pain report and reduce fall risk. Balance: Static Sitting: Normal Dynamic Sitting: Normal Static Standing: Fair Dynamic Standing: Fair Special Tests: Mobility Limitations Standardized Measure [facility] AM-PAC 6 clicks Basic Mobility Inpatient Short Form: Raw Score: 20 CMS Score: 36% deficit Informed Consent/Education: Patient was instructed in purpose of PT consult and plan of care. Agreeable to proceed with established PT POC to achieve personal goals. Assessment: Patient had the most challenge with sit<>supine due to pain level in the R hip. Was able to help R LE better when asked to hook L foot behind R foot to lift B legs up back onto bed from sit to supine. Pain level stayed at 5?10 through the R hip and thigh throughout session. She was able to navigate level surfaces as above with slight antalgia but no LOB, nor did she require any physical assi stance. Had minimal report of lightheadedness but Bp was 105/59 mmHg after the 150 feet walk. Patient presents with clinical signs and symptoms consistent with current/admitting diagnoses that have resulted to mobility limitations, gait instability, generalized weakness, and overall ADL decline as demonstrated by the following impairment level findings: 1. Decreased strength to r hip major muscle groups 2. Impaired sitting/standing balance 3. Impaired activity tolerance 4. Limitation of joint range of motion in R hip 5. Shortness of breath 6. Post-operative swelling in R hip and thigh Impairments are contributing to the following functional limitations: 1. Decline in bed mobility skills 2. Decline in transfer skills 3. Difficulty with ambulation without assistive device and physical assistance 4. Increased completion time for mobility ADL performance 5. Increased risk for falls 6. Difficulty with managing steps alone safely Patient is assessed as a 37302 moderate complexity based on the following: History: 69-year-old female with past medical history as indicated above Examination: Demonstrable impairment in strength, balance, and mobility level with underlying impairments and functional limitations as exhibited above as well as deficit score of 36% utilizing the [facility] Mobility Inpatient Short Form Presentation: Evolving Decision Makin moderate complexity Goals: Goals X1 week 1. Supine-Sit independent 2. Sit-Supine independent 3. Sit-Stand independent 4. Stand-Sit independent with FWW 5. Bed-Chair independent with FWW 6. Chair-Bed independent with FWW 7. Independent gait on level surface with use of FWW for at least 300 feet without report of pain nor dyspnea 8. Independent stair negotiation while holding onto cane and one rail for at least 12 steps without report of pain nor dyspnea 9. Independent with home exercise program 10. Good static and dynamic standing balance/tolerance Plan of Care/Treatment Plan: 1-2x/day, 7 days/week x 1 week. Plan of care has been reviewed with the CHRISTIAN COUNSELOR providing the service under Physical Therapy direction. Initiate Physical Therapy intervention for pain management as needed, strengthening, bed mobility, transfers, gait, stairs, balance training, and use of assistive device. DISCHARGE RECOMMENDATIONS: PT to continue with functional mobility training in [facility] home setting to reduc e fall risk. Will require use of FWW to minimize pain report and reduce fall risk at home. TREATMENT CODE/TIME: 35009 x 20 minutes for 1 unit, 62961 x 25 minutes for 2 units (8:47-9:32). Thank you for the opportunity to participate in the care of this patient. Odalys Gutierrez PT, DPT, CLT [facility], [place]
--- NOTE | 2025-03-02 09:37 | INITIAL_ITS ---
Date of service: 03/02/25 Time of Service: 09:37 Care Management Initial Assmt Initial Assessment Reason for Hospitalization: Hip Fracture Functional Status/Living Situation Patient Presentation: José was admitted to [facility] yesterday follow a hip fracture sustained while walking her dog at her summer home in [place], [place]. She was pleasant and easy to engage in conversation and reports that she is doing much better than yesterday. She indicated that her pain was well controlled, she worked with PT and did stairs and is eager to let her son know if she is able to discharge home today. She resides in [place], [place] with her youngest son but spends November through April at her seasonal residence on [address]. She drives and is active and independent at baseline. She is planning to go to her home in [place] once discharged. She anticipates support from her sons and friends after discharge. Town of Residence: [place], [place] Resides with: Child (Son) Significant Other/Family: Local Natural Supports: Sons live in [place] and [place], and sister in [place] Employment Status: Retired (Teacher) Instrumental Activities of Daily Living (ADLs): Independent Medications Medication Management: No Issues/Barriers identified Physical Functioning/Mobility Assistive Device: None at baseline Advance Directives Advance Directives: Do you have an Advance Directive: N , 11:57 AD On File at [facility]: N 03/01/25, 11:57 Date Asked 03/01/25 03/01/25, 11:57 AD Date Reviewed COLST On File at [facility] COLST Date Scanned Code Status Resuscitation Status Full Code Portal Pt does not currently have a portal and education provided: Yes Insurance Coverage/Financial Issues Insurance: /[facility] - [id number] Care Team Visit Care Team Role Provider Type Carley Hopkins NP MD [facility] STAFF PHYSICIAN Gerson Proctor Primary Care Provider NON-[facility] STAFF PHYSICIAN [facility] Other Providers OTHER Adam Fay MD Emergency Provider [facility] STAFF PHYSICIAN Vinnie Gilbert MD Admit Provider [facility] STAFF PHYSICIAN Attending Provider Discharge Potential Discharge Needs: Surgical F/U Appt Anticipated Barriers to Discharge: None Identified Patient/Family Education Needs: Review discharge instructions, discuss Ask Me Three Transportation: Private vehicle Plan: Anticipate, José will discharge back to her home in [place], [place] once medically ready for discharge. Transportation will be provided by her son, Mukesh. She will follow up with her community providers and continue per her discharge plan of care as directed. Patient reports that she has previously attended outpt PT at [facility] [place] in [place], [place]. CM will continue to follow and support discharge planning needs. Social Determinants of Health Screening Social Determinants of health last assessed in clinic: 03/02/25 Will the Patient Participate in the Screening?: Yes Do you worry about having a steady place to live?: no Problems where you live: no known problems In the past 12 months, have you had to go without electric, gas, oil or water in your home?: no 1. Within the past 12 months, we worried whether our food would run out before we got money to buy more.: Never true 2. Within the past 12 months, the food we bought just didn't last and we didn't have money to get more.: Never true Has lack of transportation kept you from medical appointments or from doing things needed for daily living?: no Has anyone in your life made you feel unsafe or unsupported?: no How hard is it for you to pay for the very basics like food, housing, medical care, and heating? Would you say it is:: Not hard at all Do you want help finding or keeping work or a job?: I do not need or want help If for any reason you need help with day-to-day activities such as bathing, preparing meals, shopping, managing finances, etc., do you get the help you need?: I don?t need any help How often do you feel lonely or isolated from those around you?: Never Do you speak a language other than [place] at home?: No Does the patient want assistance with any of the above?: No PFSH All Active Problems (Updated 03/01/25 @ 11:56 by Adam Fay MD) Closed fracture of right hip (Acute) Dyslipidemia (Acute) Hypertension (Chronic) Closed intertrochanteric fracture of right hip (Acute 03/01/25) Social History Smoking/Tobacco Use Status: Former Tobacco Use Smoking risk assessment performed?: Yes Alcohol Intake: current Alcohol Intake frequency: 0-2 drinks per day Substance use type: marijuana Housing: house Do you feel safe at home: Yes Do you feel safe in your relationship?: Yes
--- NOTE | 2025-03-02 10:59 | W.PM.PROGNOT ---
Date of Service Date of service: 03/02/25 Time of Service: 15:03 Assessment and Plan Assessment and plan (1) Closed intertrochanteric fracture of right hip: Status: Acute Assessment and plan: 69-year-old female postop day #1 status post right Hip IMN Doing very well. Dull pain 4 out of 10. Has been weightbearing as tolerated with PT using a walker without difficulty. Denies chest pain, shortness of breath, fever, numbness, or tingling. No concern for infection. Eager to be discharged home. No additional questions or concerns. Right hip exam: Surgical incisions with Tegaderm dressings which were not removed. No surrounding erythema. Dressings appear dry. No evidence of infection. Diffuse moderate ecchymosis and swelling, deformity. Demonstrates gentle active range of motion without significant discomfort. Regular alignment and symmetry. Intact sensation throughout and distally intact motor. Normal pedal pulse and capillary refill. Patient without questions or concerns. She is eager to be discharged, her son is at her camp in [place]. She has about a 2-hour drive home and will need to go to the pharmacy. She feels confident in being discharged at this time, able to tolerate weightbearing as tolerated using a walker. Given the distance she is from home, request referral to [facility]. Referral to be sent for follow-up in about 2-3 weeks. Discharge instructions (please update & copy into discharge document) Surgery: Right hip IMN 03/01/25 Activity: Weightbearing as tolerated with walker Home health versus outpatient physical therapy will be arranged as needed Prescriptions: Aspirin 81 mg take 1 twice daily to prevent a blood clot for 30 days Celecoxib 100 mg take 1 every 12 hours with a meal as needed for moderate pain Tramadol 50 mg take 1 every 6 hours as needed for severe pain You may use [id number] Tylenol (acetaminophen) as needed for mild pain. These pain medications may be taken all at once or in different combinations as needed. Also, recommend Colace (docusate) as a stool softener as surgery and pain medicine cause constipation. Dressings: Leave dressing in place until follow-up. Keep clean and dry at all times. Follow-up: [facility] in about 2-3 weeks. Referral is being sent. Please call [facility] during business hours with any questions or concerns. Objective Last Vital Signs Temp 36.6 C 03/02/25 07:44 Pulse 90 03/02/25 07:44 Resp 18 03/02/25 07:44 BP 120/73 03/02/25 07:44 Pulse Ox 97 03/02/25 07:44 Laboratory Results - last 24 hr 03/01/25 10:15 WBC 8.17 RBC 4.39 Hgb 13.4 Hct 37.9 MCV 86 MCH 30.5 MCHC 35.4 RDW 12.3 Plt Count 310 MPV 9.0 Immature Gran % 0.5 Neutrophils % 73.3 Lymphocytes % 14.4 Monocytes % 7.2 Eosinophils % 4.0 Basophils % 0.6 Nucleated RBC % 0.0 Absolute Neutrophils 5.98 Absolute Lymphocytes 1.18 L Absolute Monocytes 0.59 Absolute Eosinophils 0.33 Absolute Basophils 0.05 PT 10.1 INR 1.0 APTT 25.4 Sodium 136 Potassium 3.5 Chloride 98 Carbon Dioxide 27.8 Anion Gap 10.2 BUN 14 Creatinine 0.7 Est GFR (CKD-EPI 2020) 93.56 Glucose 114 H Calcium 9.1 Magnesium 2.1 Total Bilirubin 0.4 AST 27 ALT 45 Alkaline Phosphatase 47 Total Protein 7.6 Albumin 4.2 ABO/Rh O Positive Antibody Screen NEGATIVE PAWSS Have you Been Recently Intoxicated or Drunk Within the Last 30 days?: No Have you Ever Experienced Previous Episodes of Alcohol Withdrawal?: No Have you ever Experienced Withdrawal Seizures?: No Have you ever Experienced Delirium Tremens(DT)s?: No Have you ever undergone Alcohol Rehabilitation Treatment (i.e, inpt ot outpatient treatment programs)?: No Have you ever Experienced Blackouts?: No Have you ever Combined Alcohol with other Downers within the last 90 days?: No Have you ever Combined Alcohol with any other Substance of Abuse during the last 90 days?: No Positive Blood Alcohol level on Presentation? [PCS.BAL]: No Evidence of Increased Autonomic Activity (i.e. HR>120, tremor, sweating, agitation, nausea)?: No Result: 0 Time Spent with Patient Time Spent with Patient: <25 minutes Time was spent: care coordination
--- NOTE | 2025-03-02 14:15 | PTTR_ITS ---
PT Notes Visit Reasons: Right Hip Fracture Physical Therapy Inpatient Treatment Note Date: 03/02/2025 Precautions: Fall. Standard. Activity as tolerated. Subjective: Ready to go home today. Secure about how much help she will get at home from family and friends. Objective: General Observation: Post op surgical dressing to R hip. IV access through R UE. Mental Status: Alert and oriented as to person, place, time, and purpose. Able to pay attention, focus, and respond appropriately. Pain: 3/10 throughout session Vital Signs: Closely monitored by nursing staff Bed Mobility/Transfers: Minimal cueing provided for use of B hands as needed for support, movement sequence, AD management, and posture to reduce fall risk and minimize pain report Supine to sit supervision HOB at 45 degrees Sit to supine stand by assist Sit to stand stand by assist with FWW ith definite use of hands for support Stand to sit stand by assist with FWW ith definite use of hands for support Bed to reclining chair stand by assist with FWW ith definite use of hands for support Reclining chair to bed assist with FWW ith definite use of hands for support Gait: Facilitated safe and correct performance of level surface ambulation covering a disatnce of 300 feet using front-wheeled walker with mild antalgic gait observed but no LOB. Verbalized feeling mildly SOB but symptom subsided whne she went back to bed after session. Step height and length in R decreased. Minimal verbal cueing was given for to AD management, weight distribution through R LE (as recommended by orthopod), limb moveme Jeanne Graves MDnt sequence and for posture to minimize pain report and reduce fall risk. Balance: Static Sitting: Normal Dynamic Sitting: Normal Static Standing: Fair Dynamic Standing: Fair Assessment: Pain and activity tolerance improved. Patient demonstrated more independence with functional mobility with FWW. Will contiue to martín from PT to progress overall mobility level and promote better functinal outcomes while reduceing fall risk. Plan of Care/Treatment Plan: 1-2x/day, 7 days/week x 1 week. Plan of care has been reviewed with the CUSTOMER LOGISTICS MANAGER providing the service under Physical Therapy direction. Initiate Physical Therapy intervention for pain management as needed, strengthening, bed mobility, transfers, gait, stairs, balance training, and use of assistive device. THERA EX: Trained patient with correct performance of exercises below to maximize motor control, joint flexibility, soft tissue extensibility of the [] hip musculature to facilitate return to independent functional mobility performance. Access Code: [email or web address] URL: [email or web address] Date: 03/04/2025 Prepared by: Odalys Gutierrez Exercises - Gluteal Sets - 1 x daily - 7 x weekly - 1 sets - 10 reps - 5 hold - Supine Heel Slide - 1 x daily - 7 x weekly - 1 sets - 10 reps - 5 hold - Supine Ankle Pumps - 1 x daily - 7 x weekly - 1 sets - 10 reps - 5 hold - Seated March - 1 x daily - 7 x weekly - 1 sets - 10 reps - 5 hold - Seated Long Arc Quad - 1 x daily - 7 x weekly - 1 sets - 10 reps - 5 hold DISCHARGE RECOMMENDATIONS: HH PT to continue with functional mobility training in [facility] home setting to reduce fall risk. Will require use of FWW to minimize pain report and reduce fall risk at home. TREATMENT CODE/TIME: 69008 x 25 minutes for 2 units, 64812 x 13 minutes for 1 unit (14:15-14:53).
--- NOTE | 2025-03-02 15:13 | DSE_ITS ---
Date of service: 03/02/25 Time of Service: 15:13 DS: Diagnosis Discharge Diagnosis (1) Closed intertrochanteric fracture of right hip: Status: Acute Discharge Plan Disposition Patient Disposition: Home Condition: Improving Discharge Details Reason For Visit: Right Hip Fracture Admit Date/Time: 03/01/25 11:46 Admit Provider: Vinnie Gilbert Attending Provider: Vinnie Gilbert Primary Care Provider: Gerson Proctor Hospital Course Hospital Course: Patient: 69-year-old female Diagnosis: Closed intertrochanteric fracture of right hip Procedure: Right hip intramedullary nail fixation (IMN) performed on 03/01/2025 Hospital Course: Patient tolerated surgery well without complications. On postoperative day 1, pain is well controlled (4/10). She is ambulating with a walker, weightbearing as tolerated, and demonstrates good mobility. Denies chest pain, shortness of breath, fever, or neurological symptoms. Incisions are clean, dry, and intact with Tegaderm dressing; no evidence of infection. Neurovascular exam normal. Condition at Discharge: Stable and appropriate for discharge home. Patient is confident in managing recovery at home with assistance from family.r; patient aware of pharmacy needs en route home. * Given long distance from home (approx. 2 hours), referral to [facility] for follow-up in 2?3 weeks. Referral initiated. * Continue weightbearing as tolerated using a walker. * Follow up with [facility] outpatient PT as indicated. Home Meds and New Rx's Prescriptions: New tramadol 100 mg capsule,ER biphase 24 hr 25-75 100 mg PO Q6H PRN PRNQty: 20 0RF Continued bupropion HCl 100 mg tablet 100 mg PO BID losartan [Cozaar] 100 mg tablet 100 mg PO DAILY amlodipine 5 mg tablet 5 mg PO DAILY celecoxib [Celebrex] 100 mg capsule 100 mg PO BID hydrochlorothiazide 25 mg tablet 25 mg PO DAILY atorvastatin [Lipitor] 10 mg tablet 10 mg PO QHS Discharge Instructions Additional Instructions: Hip Fracture Discharge Instructions Activity: The most important activity is to walk. You should try to take short walks a few times a day. You have no restrictions on movement or positioning, but do not try to force what you do. You will find some stiffness and weakness with hip flexion (lifting your knee). Do not try to strengthen this too early, continue to practice walking and stairs and this will come. Dressing: Keep the surgical dressing in place for at least one week. After the first week it may be removed and replace with light gauze and tape or nothing. It may get wet after 3 days but avoid soaking the dressing. If it gets wet, just lightly pat dry. It is important to always keep some gauze between skin folds, especially when you are sitting. Spend some time with the wound exposed when you are lying flat as the incision does wrinkle onto itself. Follow-up: 2 weeks Surgery: Right hip intramedullary nail fixation on 03/01/2025. Activity: * Weightbearing as tolerated with walker. * Home health or outpatient physical therapy to be arranged as needed. Medications: * Aspirin 81 mg ? Take 1 tablet twice daily for 30 days (blood clot prevention). * Celecoxib 100 mg ? Take 1 capsule every 12 hours with meals as needed for moderate pain. * Tramadol 100 mg ? Take 1/2 to 1 tablet every 6 hours as needed for severe pain. * May use acetaminophen (Tylenol) as needed for mild pain. * Pain medications may be taken individually or in combination as needed. * Recommend Colace (docusate) as a stool softener to prevent constipation related to surgery and pain medications. Wound Care: * Leave surgical dressing in place until follow-up. * Keep incision clean and dry at all times. Follow-up: * [facility] in approximately 2?3 weeks (referral sent). * [facility] Questions/Concerns: * Contact [facility] at during business hours. Stand Alone Forms: Nursing Discharge Form Referrals: Gerson Proctor [Primary Care Provider] Referral Note: Please call your PCP to schedule a follow up within 7-10 days Activity:: Activity as Tolerated Equipment/Supplies:: Walker Diet:: As Tolerated Discharge Orders Discharge Orders: Discharge Order (Routine); Ordered 03/02/25 Ordered By: Carley Hopkins DS: Summary Time Spent with Patient providing and/or coordinating discharge services: Greater than 30 minutes Status at Discharge Functional status at discharge: uses cane/walker Overall status at discharge: patient is progressing back to baseline Mental Status: mental status grossly normal Speech and Movement: speech and movement normal Mood: congruent mood Affect: normal affect Exam Narrative Exam Narrative: * Surgical incisions covered with Tegaderm dressings (not removed); appear dry and intact. * No surrounding erythema, drainage, or signs of infection. * Moderate ecchymosis and swelling consistent with postoperative course. * No gross deformity. * Gentle active ROM tolerated without significant discomfort. * Lower extremity alignment and symmetry preserved. * Sensation intact; distal motor function intact. * Pedal pulses palpable with normal capillary refill. Psych Mental Status: mental status grossly normal Speech and Movement: speech and movement normal Mood: congruent mood Affect: normal affect DS: Data Vitals/I&O Vitals and I&O: Vital Signs Temperature 36.6 C 03/02/25 07:44 Temperature Source Temporal Artery Scan 03/02/25 07:44 Pulse 90 03/02/25 07:44 Pulse Rhythm Regular 03/01/25 13:11 Respiratory Rate 18 03/02/25 07:44 Respiratory Effort Normal 03/01/25 13:11 Respiratory Depth Normal 03/01/25 13:11 Respiratory Pattern Normal 03/01/25 13:11 Blood Pressure 120/73 03/02/25 07:44 Blood Pressure Mean 88 03/02/25 07:44 Pulse Oximetry 97 03/02/25 07:44 Oxygen Delivery Method Room Air 03/02/25 07:44 Oxygen Flow Rate 0 03/02/25 07:44 Pain Level 4 03/02/25 03:38 Intake & Output 03/01/25 03/02/25 03/02/25 23:59 11:59 23:59 Intake Total 1182.5 / 1182.5 2150 / 2150 Output Total 330 / 330 300 / 300 Balance 852.5 / 852.5 1850 / 1850 Weight 69.853 kg Intake: IV 1182.5 / 1182.5 2150 / 2150 Oral 0 / 0 Output: Urine 300 / 300 300 / 300 Estimated Blood Loss 30 / 30 Other: Urine Color Yellow Yellow Straw Urine Appearance Clear Clear Urine Odor Normal Emesis Description None PFSH All Active Problems (Updated 03/01/25 @ 11:56 by Adam Fay MD) Closed fracture of right hip (Acute) Dyslipidemia (Acute) Hypertension (Chronic) Closed intertrochanteric fracture of right hip (Acute 03/01/25) Social History Smoking/Tobacco Use Status: Former Tobacco Use Smoking risk assessment performed?: Yes Alcohol Intake: current Alcohol Intake frequency: 0-2 drinks per day Substance use type: marijuana Housing: house Do you feel safe at home: Yes Do you feel safe in your relationship?: Yes Time Spent with Patient Time Spent with Patient: 45-69 minutes Time was spent: preparing to see the patient(eg.review tests), ordering medications,tests, procedures, referring, communicating with other health healthcare project manager, indepentently interpreting results, counseling the patient and care coordination
[2025-03-02] MEDS: traMADol 50 MG TAB 100 MG PO (15:54)
--- NOTE | 2025-03-02 16:17 | PDOC.CMDIS ---
Date of service: 03/02/25 Time of Service: 16:17 LACE Index Scoring Tool Questions: Length of Stay (in days): 1 Was the patient admitted via the E.D.?: Yes E.D. Visits: 1 Answers: Total Score: 5 Risk of Readmission: Low Risk Care Management Discharge Plan Reason for Hospitalization: Hip Fracture Discharge Plan: Dayl is discharged home via private vehicle with family. Patient will follow up with her local PCP, [facility] (referral was sent) and [facility] (as an outpatient) as directed. No new services were ordered on discharge. Patient/Family Education Needs: Review discharge instructions and plan to follow up after discharge. Discuss ask me three. Services Needed at Discharge: Physical Therapy (Outpatient PT)
== END 2025-03-02 16:26 | disposition home or self-care (01) | DRG 482 ==
LOC: ER 11:57 → MS 12:46
PROVIDERS: Student in an Organized Health Care Education/Training Program; Admitting Provider Family Medicine; Emergency Provider Emergency Medicine; PCP Internal Medicine; Responsible Provider Nurse Practitioner Family; Visit Provider Family Medicine
PROC: 0QS606Z Reposition Right Upper Femur with Intramedullary Internal Fixation Device, Open Approach (ICD-10-PCS; CPT 27245; principal; 2025-03-01 13:45)
DX: S72.141A Displaced intertrochanteric fracture of right femur, initial encounter for closed fracture (principal); E78.5 Hyperlipidemia, unspecified; I10 Essential (primary) hypertension; Z79.899 Other long term (current) drug therapy; F12.90 Cannabis use, unspecified, uncomplicated; W18.39XA Other fall on same level, initial encounter; Y93.K1 Activity, walking an animal
CPT/HCPCS: 27245; 00123; 73552; 73562; 80053; 86850; 86900; 86901; 93005; 96374; 97110; 97162; 97530; 99222; 99285; 72170; 73501; 83735; 85025; 85610; 85730; 93010; 99239; J0131; J0690; J1100; J1885; J2003; J2250; J2371; J2405; J2704; J3010